=== PATIENT | female | born 1985 | race Caucasian/White ===

== ENCOUNTER 2018-03-31 22:34 | Emergency (ER) | payer OTHER ==
--- NOTE | 2018-04-01 01:00 | ED.PDOC ---
History of Present Illness - General Chief Complaint: [employer] Problem Stated Complaint: 27 weeks with bleeding Time Seen by Provider: 03/31/18 22:36 Source: patient Exam Limitations: no limitations - History of Present Illness Initial Comments: the patient is a 32-year-old female presenting at 27 weeks gestation with vaginal spotting after intercourse. The patient has noticed movement. She is not having contractions. No loss of fluid. No previous bleeding. She did have a low-lying placenta earlier in but it has moved up. Blood type is A- according to her.spotting has essentially stopped by the time she arrived here. Timing/Duration: 1 hour Severity: mild Improving Factors: nothing Worsening Factors: nothing Associated Symptoms: denies symptoms Allergies/Adverse Reactions: Allergies NO KNOWN ALLERGY Allergy (Verified 03/31/18 23:40) Review of Systems - Review of Systems Constitutional: States: no symptoms reported EENTM: States: no symptoms reported Respiratory: States: no symptoms reported Cardiology: States: no symptoms reported Gastrointestinal/Abdominal: States: no symptoms reported Genitourinary: States: see HPI Musculoskeletal: States: no symptoms reported Skin: States: no symptoms reported Neurological: States: no symptoms reported Endocrine: States: no symptoms reported All other Systems: No Change from Baseline Physical Exam - Physical Exam General Appearance: Alert, Comfortable, No apparent distress Eye Exam: bilateral normal Ears, Nose, Throat: hearing grossly normal, normal ENT inspection, normal pharynx Neck: full range of motion, supple, normal inspection Respiratory: lungs clear, normal breath sounds, no respiratory distress, no accessory muscle use Cardiovascular/Chest: normal peripheral pulses, regular rate, rhythm, no edema Peripheral Pulses: radial,right: 2+, radial,left: 2+ Gastrointestinal/Abdominal: non tender - no palpable contractions., soft Rectal Exam: other - speculum exam shows a cllosed cervical os. Small amount of blood in the vaginal vault. 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 The patient has beenchecked several times over a period of a couple of hours. Low resolution ultrasound here by me today shows an JACK of approximately 8 cm. The child is moving. Cephalic. Placenta is left lateral and fairly high. No gross evidence of any abruption by ultrasound. Progress - Progress Progress: 04/01/18 01:01 the patient's a 32-year-old female presenting secondary to vaginal spotting at 27 weeks after sexual intercourse. This is likely only local irritation however I do recommend that the patient abstain from further intercourse until she is further evaluated by her log handler in the coming few days. There is no evidence of contractions and the cervical os is closed. Low resolution ultrasound shows an adequate JACK and no obvious evidence of any abruption. heart tones have been measured over several hours intermittently getting heart rates in the 140s to 150s. ER warnings were given. Keep follow-up with log handler. She did receive a dose of RhoGAM here today. Departure - Departure Clinical Impression: Vaginal bleeding during Disposition: Discharge to Home or Self Care Condition: Fair Departure Forms: ED Discharge - Pt. Copy, Patient Portal Self Enrollment Instructions: DI for Vaginal Bleeding During Diet: regular diet Activity: increase activity as tolerated Additional Instructions: the patient's a 32-year-old female presenting secondary to vaginal spotting at 27 weeks after sexual intercourse. This is likely only local irritation however I do recommend that the patient abstain from further intercourse until she is further evaluated by her log handler in the coming few days. There is no evidence of contractions and the cervical os is closed. Low resolution ultrasound shows an adequate JACK and no obvious evidence of any abruption. heart tones have been measured over several hours intermittently getting heart rates in the 140s to 150s. ER warnings were given. Keep follow-up with log handler. She did receive a dose of RhoGAM here today.
[2018-04-01 02:57] VITALS: BP 110/70; TEMP 98.1
[2018-04-01 02:58] VITALS: O2SAT 99
== END 2018-04-01 01:55 | disposition home or self-care (01) ==
LOC: ER 22:34
DX: O26.852 Spotting complicating pregnancy, second trimester (principal); Z3A.27 27 weeks gestation of pregnancy

== ENCOUNTER → 2020-04-18 | Outpatient (CLI) | payer MEDICAID | LOC: YCFC.O 16:29 | PROVIDERS: ATTEND Nurse Practitioner Family | DX: Z11.59 Encounter for screening for other viral diseases (principal); Z20.828 Contact with and (suspected) exposure to other viral communicable diseases ==